=== PATIENT | male | born 1980 | race Two or more races ===

== ENCOUNTER 2019-06-25 02:18 | Emergency (ER) | payer OTHER ==
[~2019-06-25] VITALS: Ht 175.3 cm; Wt 68.0 kg
[2019-06-25] MEDS ORDERED: ADDERAL20 MG ORAL (02:28)
--- NOTE | 2019-06-25 02:28 | NUR ---
ED Nurse Note: PT ARRIVED WITH RA 66 D/T ANXIETY ATTACK AND TACHYCARDIA HEART RATE AT 120. PT IS SHAKING AND [employer] AT BEDSIDE.
[2019-06-25 02:29] VITALS: BP 160/100
[2019-06-25] MEDS ORDERED: LORazepam 1mg tab ORAL ONE (02:30)
--- NOTE | 2019-06-25 02:45 | Emergency Room Report ---
History of Present Illness General Chief Complaint: Medical Clearance Source: Patient Present Illness HPI 38-year-old male history of schizophrenia, was found trying to steal a car, patient when he found out he was going to go to shelter, started breathing heavy, started having palpitations and complained of chest tightness, patient states he is very anxious, aggravated by anxiety, alleviated by relaxation, severity is moderate, constant, patient reports that Ativan helps him when he gets like this. Patient reports subjective chest pain,. He denies any trauma to his head. Allergies: Coded Allergies: No Known Allergies (Unverified , 06/25/19) Patient History Past Medical History: see triage record Social History: Reports: drug use Reviewed Nursing Documentation: PMH: Agreed; PSxH: Agreed Nursing Documentation-PMH Past Medical History: No History, Except For Hx Hypertension: Yes History Of Psychiatric Problem: Yes Review of Systems All Other Systems: negative except mentioned in HPI Physical Exam Vital Signs Date Time Temp Pulse Resp B/P (MAP) Pulse Ox O2 Delivery O2 Flow Rate FiO2 06/25/19 02:25 98.1 120 18 160/100 (120) 98 Room Air Sp02 EP Interpretation: reviewed, normal General Appearance: well appearing, no apparent distress, alert Head: normocephalic, atraumatic Eyes: bilateral eye PERRL, bilateral eye EOMI ENT: uvula midline, moist mucus membranes Neck: supple, thyroid normal, supple/symm/no masses Respiratory: lungs clear, no respiratory distress, no retraction, no accessory muscle use Cardiovascular #1: normal peripheral pulses, no edema, no gallop, no murmur, tachycardia Gastrointestinal: non tender, soft, no guarding, no rebound Musculoskeletal: normal inspection Neurologic: alert, oriented x3 Psychiatric: anxious Skin: no rash, warm/dry Medical Decision Making Diagnostic Impression: Primary Impression: Palpitations Additional Impression: Medical clearance for incarceration ER Course 38-year-old male presents with palpitations, chest pain, after he found out he was about to be medically cleared. Patient felt better with some Ativan administration, when patient is not observed his heart rate would drop below 100, when I would walk back into the room, patient's heart would increase to 120 Low suspicion for emergent pathology at this time, once I told patient that he would be cleared his heart rate would increase again. Patient states he does not want to go to shelter. Patient is medically cleared for incarceration EKG Diagnostic Results EKG Time: 02:25 EP Interpretation: Sinus tachycardia, rate 110, QTc 460, no acute ST elevations , normal axis Rhythm Strip Diag. Results Rhythm Strip Time: 02:43 EP Interpretation: yes Rate: 114 Rhythm: NSR, no PVC's, no ectopy Last Vital Signs Date Time Temp Pulse Resp B/P (MAP) Pulse Ox O2 Delivery O2 Flow Rate FiO2 06/25/19 02:29 98.1 120 18 160/100 98 Room Air Disposition: D/C TO LAW ENFORCEMENT IN [facility]UST Condition: Stable Referrals: [facility] Departure Forms: [facility] Clearance Patient Instructions: Palpitations, [id number] Additional Instructions: The patient was provided with discharge instructions, notified to follow-up with a primary care doctor and or specialist in the next 24-48 hours, and to return to the ED if they have worsening of their symptoms. Please note that this report is being documented using [employer] technology. This can lead to erroneous entry secondary to incorrect interpretation by the dictating instrument. Albert Brice MD Jun 25, 2019 02:45
--- NOTE | 2019-06-25 02:48 | NUR ---
ED Nurse Note: PER [facility] HOLD BENADYRL ORDER FOR 30 MINUTES AND MONITOR PT HEART RATE.
[2019-06-25] MEDS ORDERED: DiphenhydrAMINE 50mg/ml Inj IM ONE (03:00)
--- NOTE | 2019-06-25 03:06 | NUR ---
ED Nurse Note: PT HEART RATE 96. BENADRYL WILL NOT BE GIVEN. ERMD AWARE. PT IS MEDICALLY CLEARED TO BOOK AND DC. NAYD ESCORTED PT.
--- NOTE | 2019-06-28 11:30 | Cardiology Report ---
APPROVED REPORT EKG Measurement Heart [id number] Sinus tachycardia Possible Left atrial enlargement Rightward axis Borderline ECG
== END 2019-06-25 03:06 ==
LOC: EDBD 02:18 → EMR 02:53
DX: R00.2 Palpitations (principal); R07.9 Chest pain, unspecified; F41.9 Anxiety disorder, unspecified; I10 Essential (primary) hypertension; F20.9 Schizophrenia, unspecified; R00.0 Tachycardia, unspecified
CPT/HCPCS: 93005; 99283